=== PATIENT | male | born 1990 | race Caucasian/White ===

== ENCOUNTER 2018-12-13 23:01 | Emergency (ER) | payer SELFPAY ==
[2018-12-13 23:49] VITALS: BP 122/74
--- NOTE | 2018-12-16 19:08 | Emergency Department Report ---
Blank Doc - Documentation Documentation: patient left before being seen by a provider
== END 2018-12-14 00:05 | disposition left against medical advice (07) ==
LOC: ED 23:01
DX: M79.604 Pain in right leg (principal); Z53.21 Procedure and treatment not carried out due to patient leaving prior to being seen by health care provider